=== PATIENT | male | born 1980 | race Two or more races ===

== ENCOUNTER 2018-11-03 17:01 | Emergency (ER) | payer MEDICAID ==
[~2018-11-03] VITALS: Ht 172.7 cm; Wt 111.6 kg
[2018-11-03 21:14] VITALS: BP 147/101
== END 2018-11-03 22:41 | disposition home or self-care (01) ==
LOC: ER 17:05
DX: H81.10 Benign paroxysmal vertigo, unspecified ear (principal)

== ENCOUNTER 2022-09-06 10:06 | Emergency (ER) | payer MEDICAID ==
[~2022-09-06] VITALS: Ht 172.7 cm; Wt 127.4 kg
[2022-09-06 10:28] VITALS: BP 151/100
[2022-09-06 10:41] LABS: Urine Bacteria NONE SEEN /hpf (None Seen); Urine Blood Negative /uL (Negative); Urine Budding Yeast OCCASIONAL /hpf (None Seen); Urine Mucus FEW (None Seen); Urine Specific Gravity 1.024 (1.001-1.035); Urine WBC 1 /hpf (0 - 3)
[2022-09-06 11:02] LABS: Basophils # (auto) 0 10 ^3/uL (0-0.2); Basophils % (auto) 0.3 % (0.0-2.0); Eosinophils # (auto) 0 10 ^3/uL (0-0.8); Eosinophils % (auto) 0.3 % (0.0-7.0); Hematocrit 48.9 % (41.0-53.0); Hemoglobin 16.4 g/dL (13.5-17.5); Lymphocytes # (auto) 3.1 10 ^3/uL (0.4-5.4); Lymphocytes % (auto) 23.1 % (10.0-50.0); Mean Corpuscular Hemoglobin 28.3 pg (28.0-32.0); Mean Corpuscular Hgb Conc. 33.5 g/dL (32.0-36.0); Mean Corpuscular Volume 84.5 fL (80.0-100.0); Monocytes # (auto) 0.9 10 ^3/uL (0-1.3); Monocytes % (auto) 6.8 % (0.0-12.0); Neutrophils # (auto) 9.4 10 ^3/uL (1.6-8.6); Neutrophils % (auto) 69.5 % (37.0-80.0); Nucleated Red Blood Cells % 0.2 %; Red Blood Cells 5.79 10^6/uL (4.5-5.90); Red Cell Distribution Width 13.5 % (11.8-14.3); White Blood Cell 13.5 10^3/uL (4.4-10.8)
[2022-09-06 11:24] LABS: Albumin 3.1 g/dL (3.4-5.0); Potassium 4.5 mmol/L (3.5-5.1)
[2022-09-06] MEDS ORDERED: KETOROLAC TROMETH 60MG/2ML VIAL IM ONE (11:30)
[2022-09-06] MEDS ORDERED: ONDANSETRON ODT 4 MG TAB PO ONE (11:30)
[2022-09-06 11:32] LABS: BUN/Creatinine Ratio 14.2 (10.0-20.0); Bilirubin, Total 0.4 mg/dL (0.2-1.0); Total Protein 8.2 g/dL (6.4-8.2)
[2022-09-06] MEDS ORDERED: LACT10SO70 PO (11:43)
[2022-09-06] MEDS ORDERED: IBUP800T27 PO (11:43)
[2022-09-06] MEDS ORDERED: METR500T PO (11:43)
[2022-09-06] MEDS ORDERED: CIPR-173 PO (11:43)
== END 2022-09-06 11:50 | disposition home or self-care (01) ==
LOC: ER 10:06
DX: K57.92 Diverticulitis of intestine, part unspecified, without perforation or abscess without bleeding (principal); K80.20 Calculus of gallbladder without cholecystitis without obstruction; K59.00 Constipation, unspecified; Z88.6 Allergy status to analgesic agent
CPT/HCPCS: 36415; 74176; 80053; 81001; 83690; 85025; 96372; 99285; J1885; Q0162

== ENCOUNTER 2024-07-19 11:26 | Inpatient (IN) | payer MEDICAID ==
[~2024-07-19] VITALS: Ht 175.3 cm; Wt 115.1 kg
[~2024-07-19 11:26] MED LIST: CIPR-173 PO; IBUP-1456 PO; LACT10SO70 PO; METR500T PO
--- NOTE | 2024-07-19 11:59 | ED.PDOC ---
History of Present Illness HPI Comments 43M presents to the ER w/ prior Hx of Kidney stones x10 yrs ago which might be associated to the c/c of Flank pain. Pt assumes that he has a UTio because he "feels like I am peeing sandpaper" w/ right flank pain, pain during urination, dizziness, feeling weak for the past 5 days. PMHx of HTN and DM. Denies chills, fever, N/V/D, SOB, CP or other associated symptom's, modifiers, or recent injuries or sick contact at this time. Chief Complaint: Flank Pain Time Seen by MD: 11:50 Primary Care Provider: pt does not know Reviewed Notes: Nurses Notes, Medications, Allergies Allergies: Coded Allergies: NO KNOWN ALLERGIES (Unverified , 11/03/18) Home Meds Active Scripts Lactulose (Lactulose) 10 Gm/15 Ml Pam, 30 ML PO BID, #300 ML Prov:LUCIO JOSEPH 09/06/22 Ibuprofen (Ibuprofen) 800 Mg Tab, 1 TAB PO TID, #30 TAB Prov:LUCIO JOSEPH 09/06/22 Metronidazole (Flagyl) 500 Mg Tab, 500 MG PO BID, #14 TAB Prov:LUCIO JOSEPH 09/06/22 Ciprofloxacin Hcl (Cipro) 500 Mg Tab, 1 TAB PO BID, #20 TAB Prov:LUCIO JOSEPH 09/06/22 Information Source: Patient Mode of Arrival: Ambulatory Severity: Moderate Timing: Days Duration: Since onset, Days Prehospital treatment: None Past Medical History PAST MEDICAL HISTORY: DM, HTN, Kidney Stones (10 years ago), Denies Surgical History: Denies all surgeries Family History Family History: Reviewed,noncontributory to illness, Unknown Social History Smoker: Non-Smoker Alcohol: Denies ETOH Use Drugs: Denies Drug Use Lives In: Home Constitutional: denies: chills, diaphoresis, fatigue, fever, malaise, sweats, weakness, others EENTM: denies: blurred vision, double vision, ear bleeding, ear discharge, ear drainage, ear pain, ear ringing, eye pain, eye redness, hearing loss, mouth pain, mouth swelling, nasal discharge, nose bleeding, nose congestion, nose pain, photophobia, tearing, throat pain, throat swelling, voice changes, others Respiratory: denies: cough, hemoptysis, orthopnea, SOB at rest, shortness of breath, SOB with excertion, stridor, wheezing, others Cardiovascular: denies: chest pain, dizzy spells, diaphoresis, Dyspnea on exertion, edema, irregular heart beat, left arm pain, lightheadedness, palpitations, PND, syncope, others Gastrointestinal: denies: abdomen distended, abdominal pain, blood streaked bowels, constipated, diarrhea, dysphagia, difficulty swallowing, hematemesis, melena, nausea, poor appetite, poor fluid intake, rectal bleeding, rectal pain, vomiting, others Genitourinary: reports: burning, flank pain, frequency, pain; denies: dysuria, hematuria, incontinence, penile discharge, penile sore, testicle pain, testicle swelling, urgency, others Neurological: denies: dizziness, fainting, headache, left sided numbness, left sided weakness, numbness, paresthesia, pre-existing deficit, right sided numbness, right sided weakness, seizure, speech problems, tingling, tremors, weakness, others Musculoskeletal: denies: back pain, gout, joint pain, joint swelling, muscle pain, muscle stiffness, neck pain, others Integumetry: denies: bruises, change in color, change in hair/nails, dryness, laceration, lesions, lumps, rash, wounds, others Allergic/Immunocompromised: denies: Difficulty Healing, Frequent Infections, Hives, Itching, others Hematologic/Lymphatic: denies: anemia, blood clots, easy bleeding, easy bruising, swollen glands, others Endocrine: denies: excessive hunger, excessive sweating, excessive thirst, excessive urination, flushing, intolerance to cold, intolerance to heat, unexplained weight gain, unexplained weight loss, others Psychiatric: denies: anxiety, bipolar disorder, depression, hopeless, panic disorder, schizophrenia, sleepless, suicidal, others All Other Systems: Reviewed and Negative Physical Exam General Appearance: Moderate Distress, Normal HEENT: Normal ENT Inspection, Pharynx Normal, TMs Normal Neck: Full Range of Motion, Non-Tender, Normal, Normal Inspection Respiratory: Chest Non-Tender, Lungs Clear, No Accessory Muscle Use, No Respiratory Distress, Normal Breath Sounds Cardiovascular: No Edema, No JVD, No Murmur, No Gallop, Normal Peripheral Pulses, Regular Rate/Rhythm Breast Exam: Deferred Gastrointestinal: No Organomegaly, Non Tender, No Pulsatile Mass, Normal Bowel Sounds, Soft Genitalia: Deferred Pelvic: Deferred Rectal: Deferred Extremities: No calf tenderness, Normal capillary refill, Normal inspection, Normal range of motion, Non-tender, No pedal edema Musculoskeletal : Apperance: Normal Neurologic: Alert, help desk administrator II-XII nml as Tested, No Motor Deficits, Normal Affect, Normal Mood, No Sensory Deficits Cerebellar Function: Normal Reflexes: Normal Skin: Dry, Normal Color, Warm Peripheral Pulses: 3+ Radial (R), 3+ Radial (L) Lymphatic: No Adenopathy Was a procedure done? Was a procedure done?: No Differential Dx Considerations may include: Hyperglycemia Electrolyte imbalance X-Ray, Labs, Meds, VS Vital Signs Date Time Temp Pulse Resp B/P (MAP) Pulse Ox O2 Delivery O2 Flow Rate FiO2 07/19/24 11:32 98.9 100 17 137/98 (111) 97 Lab Test 07/19/24 12:01 07/19/24 11:31 Range/Units White Blood Count Pending Red Blood Count Pending Hemoglobin Pending Hematocrit Pending Mean Corpuscular Volume Pending Mean Corpuscular Hemoglobin Pending Mean Corpuscular Hemoglobin Concent Pending Red Cell Distribution Width Pending Platelet Count Pending Mean Platelet Volume Pending Neutrophils (%) (Auto) Pending Lymphocytes (%) (Auto) Pending Monocytes (%) (Auto) Pending Basophils (%) (Auto) Pending Neutrophils # (Auto) Pending Lymphocytes # (Auto) Pending Monocytes # (Auto) Pending Sodium Level Pending Potassium Level Pending Chloride Level Pending Carbon Dioxide Level Pending Anion Gap Pending Blood Urea Nitrogen Pending Creatinine Pending Glomerular Filtration Rate Calc Pending BUN/Creatinine Ratio Pending Serum Glucose Pending Calcium Level Pending Urine Color Light-orange Yellow Urine Clarity Ex.turbid Clear Urine pH 6.0 5.0-9.0 Urine Specific [place] 1.022 1.001-1.035 Urine Protein 2+ H Negative Urine Ketones Trace Negative Urine Blood 3+ H Negative /uL Urine Nitrite 2+ H Negative Urine Bilirubin Negative Negative Urine Urobilinogen Normal Negative mg/dL Urine Leukocyte Esterase 3+ Negative /uL Urine RBC 261 0 - 3 /hpf Urine WBC Clumps Present None Seen /hpf Urine Microscopic WBC 2391 H 0-3 /HPF Urine Squamous Epithelial Cells Few <5 /hpf Urine Bacteria Few H None Seen /hpf Urine Mucus Few None Seen Urine Glucose Normal Normal mg/dL Patient alert. Complaining of flank pain Possible kidney stone. Vitals stable. Complaining of dizziness. Has good muscle strength. Ambulating. Possible sepsis from urine. Establish intravenous access. Was given fluids. Was given Rocephin. Was given pain medication. Explained to the patient. Continue cardiac monitoring. Time of 1ST Reevaluation: 12:20 Reevaluation 1ST: Unchanged Patient Education/Counseling: Diagnosis, Treatment, Prognosis Family Education/Counseling: No Family Present Departure 1 Departure Time of Disposition: 12:23 Impression: Primary Impression: Sepsis, unspecified organism Qualified Codes: A41.9 - Sepsis, unspecified organism Additional Impressions: Sepsis due to urinary tract infection Kidney stone Disposition: ADMITTED INPATIENT Admit to: Med Surg Condition: Guarded Critical Care Note Critical Care Time?: No Stability Stability form required: No Heart Score Heart Score: Heart Score Response (Comments) Value History N/A 0 EKG N/A 0 Age N/A 0 Risk Factors N/A 0 Troponin N/A 0 Total 0 I personally scribed for CHARISSE MONTES MD ([email or web address]) on 07/19/24 at 11:59. Electronically submitted by Tae Rolle ([email or web address]). CHARISSE MONTES MD Jul 19, 2024 11:59
[2024-07-19 12:07] LABS: Urine Bacteria FEW /hpf (None Seen); Urine Blood 3+ /uL (Negative); Urine Clarity Ex.Turbid (Clear); Urine Color Light-Orange (Yellow); Urine Mucus FEW (None Seen); Urine Protein, UAD 2+ (Negative); Urine Specific Gravity 1.022 (1.001-1.035); Urine Squamous Epithelial Cell FEW /hpf (<5); Urine Urobilinogen Normal (Negative); Urine WBC 2391 /HPF (0-3); Urine WBC Clumps PRESENT /hpf (None Seen)
[2024-07-19 12:26] LABS: Basophils # (auto) 0 10 ^3/uL (0-0.2); Basophils % (auto) 0.3 % (0.0-2.0); Eosinophils # (auto) 0.1 10 ^3/uL (0-0.8); Eosinophils % (auto) 0.6 % (0.0-7.0); Hemoglobin 16.2 g/dL (13.5-17.5); Lymphocytes # (auto) 2.5 10 ^3/uL (0.4-5.4); Lymphocytes % (auto) 22.5 % (10.0-50.0); Monocytes # (auto) 1.1 10 ^3/uL (0-1.3); Monocytes % (auto) 10.1 % (0.0-12.0); Neutrophils # (auto) 7.3 10 ^3/uL (1.6-8.6); Neutrophils % (auto) 66.5 % (37.0-80.0); Nucleated Red Blood Cells % 0.1 %; Platelet Count (auto) 279 10^3/uL (140-450); Red Blood Cells 5.77 10^6/uL (4.5-5.90); Red Cell Distribution Width 13.3 % (11.8-14.3)
[2024-07-19] MEDS ORDERED: SODIUM CHLORIDE 0.9% 1,000 ML IV ONE (12:30)
[2024-07-19 12:42] LABS: Chloride 100 mmol/L (98-107); Potassium 4.2 mmol/L (3.5-5.1)
[2024-07-19 12:43] LABS: Anion Gap 9 (5-15); Carbon Dioxide 27 mmol/L (20-31)
[2024-07-19 12:44] LABS: Calcium 9.9 mg/dL (8.7-10.4)
--- NOTE | 2024-07-19 12:45 | DVHHP2 ---
History of Present Illness Reason for Visit: Flank pain History of Present Illness 43-year-old male past medical history kidney stones hypertension diabetes no surgical history chief complaint patient states he has been having right flank pain. He states it feels like sandpaper when he voids. He also has some blood in his urine. He also complains of that pain is like a sharp pain on his flank. He states he has not been feeling well for the last five days. Patient denies any fever. He does state he had some mucus-like discharge from his penis. He denies any exposure to STD he states he has one partner he has been for quite some time. He did state he has some mild dizziness. No vomiting no diarrhea some body aches no chest pain no shortness with the breath. When evaluating patient's labs and imaging looks like Flomax was given normal saline Toradol Bactrim white count was 11.0 urine showed some nitrates CT scan of the abdomen and pelvis shows mild hydronephrosis inflammation and pyelonephritis and looks like a recently passed kidney stone. With these findings we will admit and provide IV antibiotics along with IV hydration Past Medical History Kidney stone hypertension diabetes Past Surgical History Denies any surgical history Family History Reviewed, non-contributory to the management of this case. Past Social History The patient lives at home, denies smoking, alcohol or illicit drugs abuse. Review of Systems Constitutional: No: Fever, Chills, Sweats, Weakness, Malaise, Other Eyes: No: Pain, Vision change, Conjunctivae inflammation, Eyelid inflammation, Other, Redness ENT: No: Ear pain, Ear discharge, Nose pain, Nose discharge, Nose congestion, Mouth pain, Mouth swelling, Throat pain, Throat swelling, Other Respiratory: No: Cough, Dry, Shortness of breath, SOB with excertion, Wheezing, Hemoptysis, Pleuritic Pain, Sputum, Wheezing, Other Cardiovascular: No: Chest Pain, Palpitations, Orthopnea, Paroxysmal Noc. Dyspnea, Edema, Lt Headedness, Other Gastrointestinal: Nausea, Vomiting, Abdominal Pain, Other (Right flank pain) Genitourinary: Dysuria; No Frequency, No Incontinence; Hematuria; No Retention, No Other Musculoskeletal: No: other, neck pain, shoulder pain, arm pain, back pain, hand pain, leg pain, foot pain Skin: No: Rash, Lesions, Jaundice, Bruising, Other Neurological: No: Weakness, Numbness, Incoordination, Change in speech, Confusion, Seizures, Other Allergies: Coded Allergies: NO KNOWN ALLERGIES (Unverified , 11/03/18) Exam Vital Signs Vital Signs Date Time Temp Pulse Resp B/P (MAP) Pulse Ox O2 Delivery O2 Flow Rate FiO2 07/19/24 11:32 98.9 100 17 137/98 (111) 97 General Appearance: Alert, Oriented X3, Cooperative, No acute distress HEENT: Atraumatic, PERRLA, EOMI, Mucous membr. moist/pink Respiratory: Clear to auscultation, Normal air movement Cardiovascular: Regular rate, Normal S1, Normal S2, No murmurs Abdominal: Normal bowel sounds, Soft, No tenderness, No hepatospenomegaly, No masses, Other (right flank pain ) Extremities: No clubbing, No cyanosis, No edema, Normal pulses, No tenderness/swelling Skin: No rashes, No breakdown, No significant lesion Neuro: Normal gait, Normal speech, Strength at 5/5 X4 ext, Normal tone, Sensation intact, Cranial nerves 3-12 NL Psych/Mental Status: Mental status NL, Mood NL Labs/Xrays CT scan abdomen and pelvis showed1. Mild hydronephrosis and hydroureter , perinephric and periureteric inflammation without urinary calculi. Pyelitis / pyelonephritis or a recently passed stone can not be ruled out. In addition, there is mild diffuse bladder wall thickening and pericystic inflammation images suggestive of cystitis. Correlate with urinalysis. 2. Colonic diverticula without diverticulitis. 3. Cholelithiasis without cholecystitis. 4. Hepatic steatosis. I reviewed labs, imaging CT scan abdomen pelvis, EKG and all diagnostic studies on this patient from ED records and the medical chart Labs Test 07/19/24 12:01 07/19/24 11:31 Range/Units White Blood Count 11.0 H 4.4-10.8 10^3/uL Red Blood Count 5.77 4.5-5.90 10^6/uL Hemoglobin 16.2 13.5-17.5 g/dL Hematocrit 49.0 41.0-53.0 % Mean Corpuscular Volume 85.0 80.0-100.0 fL Mean Corpuscular Hemoglobin 28.0 28.0-32.0 pg Mean Corpuscular Hemoglobin Concent 33.0 32.0-36.0 g/dL Red Cell Distribution Width 13.3 11.8-14.3 % Platelet Count 279 140-450 10^3/uL Mean Platelet Volume 7.4 6.9-10.8 fL Neutrophils (%) (Auto) 66.5 37.0-80.0 % Lymphocytes (%) (Auto) 22.5 10.0-50.0 % Monocytes (%) (Auto) 10.1 0.0-12.0 % Eosinophils (%) (Auto) 0.6 0.0-7.0 % Basophils (%) (Auto) 0.3 0.0-2.0 % Neutrophils # (Auto) 7.3 1.6-8.6 10 ^3/uL Lymphocytes # (Auto) 2.5 0.4-5.4 10 ^3/uL Monocytes # (Auto) 1.1 0-1.3 10 ^3/uL Eosinophils # (Auto) 0.1 0-0.8 10 ^3/uL Basophils # (Auto) 0 0-0.2 10 ^3/uL Nucleated Red Blood Cells 0.1 % Urine Color Light-orange Yellow Urine Clarity Ex.turbid Clear Urine pH 6.0 5.0-9.0 Urine Specific [place] 1.022 1.001-1.035 Urine Protein 2+ H Negative Urine Ketones Trace Negative Urine Blood 3+ H Negative /uL Urine Nitrite 2+ H Negative Urine Bilirubin Negative Negative Urine Urobilinogen Normal Negative mg/dL Urine Leukocyte Esterase 3+ Negative /uL Urine RBC 261 0 - 3 /hpf Urine WBC Clumps Present None Seen /hpf Urine Microscopic WBC 2391 H 0-3 /HPF Urine Squamous Epithelial Cells Few <5 /hpf Urine Bacteria Few H None Seen /hpf Urine Mucus Few None Seen Urine Glucose Normal Normal mg/dL Assessment/Plan Assessment/Plan acute pyelonephritis/ cystitis appears to have passed kidney stone mild hydronephrosis ct scan abd pelvis found to have infection but no abscess ua with bacteria ordered urine culture fu results ordered ceftriaxone for now ordered morphine as needed for pain ordered ivf; strict i/o's ordered flomax for now acute leukocytosis likely from pyelonephritis ordered urine culture fu results ordered ceftriaxone for now chronic problems kidney stones htn dm ISS gallstones no infection outpt follow up with general surgery hepatic steatosis outpt follow up with gi diverticulosis outpt follow up with gi high fiber diet fen/ppx diet ivf no gi ppx since no hx of gerds or gi bleed scd plan admit to medicine Plan discussed with: Patient Date of Service: Jul 19, 2024 Billing Provider: ALESSIA SHAFFER DNP Common Visit Codes: [id number] INP/OBS CARE (HIGH) ALESSIA SHAFFER DNP Jul 19, 2024 12:45
[2024-07-19 12:48] LABS: BUN/Creatinine Ratio 10.8 (10.0-20.0); Blood Urea Nitrogen 12 mg/dL (9-23)
[2024-07-19 12:50] LABS: Glucose 166 mg/dL (74-106); Sodium 136 mmol/L (136-145)
--- NOTE | 2024-07-19 13:18 | DVH ---
Procedure: CT CT AB PEL WO CON-NO ORAL OR IV 07/19/2024 12:18 PM Indication: stone Comparison Study: CT CT AB PEL WO CON-NO ORAL OR IV on DOS: 09/06/22 Technique: Axial images were obtained and reformatted in coronal and sagittal planes. All CT scans at this medical facility are performed using dose modulation techniques as appropriate t o a performed exam including the following: Automated exposure control was utilized; adjustment of th e MA and/or KV according to patient size; and use of iterative reconstruction technique. CT Dose: CTDI volume is 24.6 mGy. Dose-length product is 1657.67 mGy*cm FINDINGS: Lower Chest: Unremarkable. Hepatobiliary: Cholelithiasis without CT evidence of cholecystitis. Hepatic steatosis.. Spleen: Unremarkable. Pancreas: Unremarkable. Adrenal Glands: Unremarkable. tract: The kidneys are normal in size bilaterally . Mild right hydronephrosis and hydroureter wit h perinephric and periureteric fat stranding. No urinary calculi are seen. Mild diffuse bladder wal l thickening. GI tract: The stomach is grossly normal in appearance. No evidence of small bowel obstruction. There is descending and sigmoid diverticulosis without diverticulitis. The appendix is normal. Lymphatics: No mesenteric, retroperitoneal or periportal lymphadenopathy. Vasculature: The abdominal aorta is normal in in caliber. Pelvic Organs: Unremarkable Bones/soft tissues: No acute abnormality. Other: None. IMPRESSION: 1. Mild hydronephrosis and hydroureter , perinephric and periureteric inflammation without urinary ca lculi. Pyelitis / pyelonephritis or a recently passed stone can not be ruled out. In addition, there is mild diffuse bladder wall thickening and pericystic inflammation images suggestive of cystitis. Co rrelate with urinalysis. 2. Colonic diverticula without diverticulitis. 3. Cholelithiasis without cholecystitis. 4. Hepatic steatosis.
[2024-07-19] MEDS: SODIUM CHLORIDE 0.9% 1,000 ML IV ONE (13:28)
[2024-07-19] MEDS: KETOROLAC TROMETH 30 MG/ML 1ML VIAL IV ONE (13:29)
[2024-07-19] MEDS: TAMSULOSIN HYDROCHLORIDE 0.4 MG CAP PO ONE (13:29)
[2024-07-19] MEDS ORDERED: NITROGLYCERIN 0.4 MG SL TAB SL PRN (14:00)
[2024-07-19] MEDS ORDERED: ONDANSETRON HCL 4 MG/2 ML VIAL IV PRN (14:00)
[2024-07-19] MEDS: SODIUM CHLORIDE 0.9% 1,000 ML IV SCH (14:00)
[2024-07-19] MEDS: SULFAMETH-TRIMETH 80/16MG-ML 15 ML in D5W 5% 500 ML IV ONE (15:52)
[2024-07-19] MEDS: cefTRIAXone 1GM/50ML D5W 50 ML IV ONE (15:52)
[2024-07-19] MEDS ORDERED: LISI10TA34 PO (16:01)
[2024-07-19] MEDS ORDERED: METF-370 PO (16:01)
[2024-07-19] MEDS ORDERED: SEMA2INJ3 SC (16:01)
[2024-07-19 16:13] VITALS: PULSE 98; RESP 18; O2SAT 97
[2024-07-19 17:00] VITALS: BP 129/81; PULSE 91; RESP 18; TEMP 98.8; O2SAT 95
[2024-07-19] MEDS: MORPHINE SULFATE INJ 2 MG/ml SYRG IV PRN (18:16)
[2024-07-19] MEDS: TAMSULOSIN HYDROCHLORIDE 0.4 MG CAP PO SCH (18:18)
[2024-07-19 20:00] VITALS: PULSE 110; RESP 19; O2SAT 96
[2024-07-19 21:00] VITALS: BP 131/87; PULSE 112; RESP 19; TEMP 100; O2SAT 93
[2024-07-19 22:00] VITALS: TEMP 99.3
[2024-07-20] VITALS (7 sets, daily range): BP systolic 96–137; BP diastolic 57–85; PULSE 65–124; RESP 17–19; TEMP 98.1–100.7; O2SAT 92–97
[2024-07-20] MEDS: SODIUM CHLORIDE 0.9% 1,000 ML IV ONE (00:42)
[2024-07-20] MEDS: ACETAMINOPHEN 325 MG TAB PO PRN (00:43)
[2024-07-20] MEDS: DOCUSATE SOD 100 MG CAP PO PRN (05:48)
[2024-07-20 06:34] LABS: Basophils # (auto) 0 10 ^3/uL (0-0.2); Basophils % (auto) 0.5 % (0.0-2.0); Eosinophils # (auto) 0.1 10 ^3/uL (0-0.8); Eosinophils % (auto) 1.4 % (0.0-7.0); Hematocrit 41.5 % (41.0-53.0); Hemoglobin 13.8 g/dL (13.5-17.5); Lymphocytes # (auto) 2.9 10 ^3/uL (0.4-5.4); Lymphocytes % (auto) 31.7 % (10.0-50.0); Mean Corpuscular Hemoglobin 28.1 pg (28.0-32.0); Mean Corpuscular Hgb Conc. 33.2 g/dL (32.0-36.0); Mean Corpuscular Volume 84.6 fL (80.0-100.0); Monocytes # (auto) 1.1 10 ^3/uL (0-1.3); Monocytes % (auto) 12.4 % (0.0-12.0); Neutrophils # (auto) 4.9 10 ^3/uL (1.6-8.6); Platelet Count (auto) 242 10^3/uL (140-450); Red Blood Cells 4.91 10^6/uL (4.5-5.90); Red Cell Distribution Width 13.1 % (11.8-14.3); White Blood Cell 9.1 10^3/uL (4.4-10.8)
[2024-07-20 06:43] LABS: Alanine Aminotransferase 17 U/L (7-40); Alkaline Phosphatase 86 U/L (46-116); Anion Gap 10 (5-15); Calcium 9.1 mg/dL (8.7-10.4); Carbon Dioxide 21 mmol/L (20-31); Glucose 101 mg/dL (74-106); Potassium 3.9 mmol/L (3.5-5.1); Sodium 138 mmol/L (136-145)
[2024-07-20 06:44] LABS: BUN/Creatinine Ratio 12.2 (10.0-20.0); Blood Urea Nitrogen 11 mg/dL (9-23)
[2024-07-20 06:45] LABS: Albumin 3.8 g/dL (3.2-4.8)
[2024-07-20 06:46] LABS: Aspartate Aminotransferase 11 U/L (13-40); Bilirubin, Total 0.3 mg/dL (0.2-1.0); Chloride 107 mmol/L (98-107); Total Protein 6.1 g/dL (5.7-8.2)
[2024-07-20] MEDS: cefTRIAXone 1GM/50ML D5W 50 ML IV SCH (09:13)
--- NOTE | 2024-07-20 12:10 | DVHPN2 ---
Subjective Was admitted for right flank pain and hematuria for 4 days Changes from previous H/P or p: Changes Eyes: No Pain, No Vision change, No Conjunctivae inflammation, No Eyelid inflammation, No Other, No Redness ENT: No Ear pain, No Ear discharge, No Nose pain, No Nose discharge, No Nose congestion, No Mouth pain, No Mouth swelling, No Throat pain, No Throat swelling, No Other Cardiovascular: No Chest Pain, No Palpitations, No Orthopnea, No Paroxysmal Noc. Dyspnea, No Edema, No Lt Headedness, No Other Respiratory: No Cough, No Dry, No Shortness of breath, No SOB with excertion, No Wheezing, No Hemoptysis, No Pleuritic Pain, No Sputum, No Other Gastrointestinal: Nausea, Vomiting, Abdominal Pain, Other (Right flank pain) Genitourinary: Dysuria; No Frequency, No Incontinence; Hematuria; No Retention, No Other Musculoskeletal: No other, No neck pain, No shoulder pain, No arm pain, No back pain, No hand pain, No leg pain, No foot pain Skin: No Rash, No Lesions, No Jaundice, No Bruising, No Other Objective Vitals Vital Signs Date Time Temp Pulse Resp B/P (MAP) Pulse Ox O2 Delivery O2 Flow Rate FiO2 07/20/24 09:00 98.3 65 18 96/57 (70) 95 98.3 07/20/24 08:00 Room Air* 0 21 Intake/Output Intake and Output 07/20/24 07:00 Intake Total 3250 ml Output Total 850 ml Balance 2400 ml Intake Oral 1250 ml IV Total 2000 ml Output Urine Total 850 ml General Appearance: Alert, Oriented X3, Cooperative Lungs: Clear to auscultation, Normal air movement Cardiovascular: Regular rate, Normal S1, Normal S2 Abdomen: Normal bowel sounds, Soft, No tenderness Extremities: No edema Medications Current Medications Medications Dose Ordered Sig/Miguel Route Start Time Stop Time Status Last Admin Dose Admin Sodium Chloride 1,000 ml @ 120 mls/hr Q8H20M IV 07/19/24 14:00 07/20/24 11:14 120 MLS/HR Ondansetron HCl 4 mg Q4HP PRN IV 07/19/24 14:00 Docusate Sodium 100 mg BIDPRN PRN PO 07/19/24 14:00 07/20/24 05:48 100 MG Morphine Sulfate 2 mg Q4HPRN PRN IV 07/19/24 14:00 07/19/24 22:59 2 MG Nitroglycerin 0.4 mg Q5MINP PRN SL 07/19/24 14:00 Ceftriaxone Sodium 50 ml @ 100 mls/hr DAILY@09 IV 07/20/24 09:00 07/20/24 09:13 100 MLS/HR Tamsulosin HCl 0.4 mg QPM PO 07/19/24 18:00 07/19/24 18:18 0.4 MG Acetaminophen 650 mg Q6HP PRN PO 07/20/24 00:30 07/20/24 00:43 650 MG Laboratory Results Laboratory Tests 07/20/24 05:30 Chemistry Test 07/20/24 05:30 Albumin 3.8 g/dL (3.2-4.8) Calcium Level 9.1 mg/dL (8.7-10.4) Total Protein 6.1 g/dL (5.7-8.2) LFT Test 07/20/24 05:30 Alanine Aminotransferase (ALT) 17 U/L (7-40) Alkaline Phosphatase 86 U/L (46-116) Aspartate Amino Transferase (AST) 11 U/L (13-40) L Total Bilirubin 0.3 mg/dL (0.2-1.0) Urinalysis Test 07/19/24 11:31 Urine Color Light-orange (Yellow) Urine Clarity Ex.turbid (Clear) Urine pH 6.0 (5.0-9.0) Urine Specific [place] 1.022 (1.001-1.035) Urine Protein 2+ (Negative) H Urine Ketones Trace (Negative) Urine Blood 3+ /uL (Negative) H Urine Nitrite 2+ (Negative) H Urine Bilirubin Negative (Negative) Urine Urobilinogen Normal mg/dL (Negative) Urine Leukocyte Esterase 3+ /uL (Negative) Urine RBC 261 /hpf (0 - 3) Urine WBC Clumps Present /hpf (None Seen) Urine Microscopic WBC 2391 /HPF (0-3) H Urine Squamous Epithelial Cells Few /hpf (<5) Urine Bacteria Few /hpf (None Seen) H Urine Mucus Few (None Seen) Urine Glucose Normal mg/dL (Normal) Microbiology Microbiology Date/Time Source Procedure Growth Status 07/19/24 11:31 Voided Urine Urine Culture - Preliminary Resulted Assessment/Plan Assessment/Plan Acute pyelonephritis of the right kidney UTI with Gram-negative rods Sepsis due to pyelonephritis Possible past right renal stone Cholelithiasis, asymptomatic Hypertension Type 2 diabetes Plan IV Rocephin Urine culture Blood culture IV fluids Pain management as needed Monitor closely Accu-Cheks Full code Advance directives discussed for 15 minute Plan discussed with: Patient, Spouse Date of Service: Jul 20, 2024 Billing Provider: HARRIET MILLARD MD Common Visit Codes: [id number] INP/OBS CARE(HIGH) Secondary Visit Codes: [id number] CARE PLAN 30 MINUTES HARRIET MILLARD MD Jul 20, 2024 12:10
[2024-07-20] MEDS ORDERED: DEXTROSE (50%) 50ML SYRG IV PRN (12:15)
[2024-07-20] MEDS: ACCU-CHEK COMFORT CURVE STRIP VI SCH (16:58)
[2024-07-20] MEDS: InsuLIN REG 1unit/0.01ml Soln (100units/ml) SC SCH (17:06)
--- NOTE | 2024-07-20 22:55 | DVHINCON2 ---
Date of service: Jul 20, 2024 Referring Physician Scott Bar MD Reason for Consultation Sepsis History of Present Illness A 43-year-old man with past medical history of kidney stones, hypertension and diabetes who presented to ED on 07/19/24 with c/o right flank pain. Patient also c/o pain on urination and blood in his urine along with sharp flank pain. Pt reported not feeling well for the past five days. Denied any fever. Pt did note some mucus-like discharge from his penis. He denied any exposure to STD; he has one partner and has been for quite some time. He also c/o some mild dizziness and body aches. No chest pain, SOB, vomiting or diarrhea. On initial workup, white count was 11.0; urine showed some nitrites. CT scan of the abdomen and pelvis showing mild hydronephrosis, inflammation and pyelonephritis and what looks like a recently passed kidney stone. Patient was thus admitted for further care, and pulmonary consultation is requested for evaluation and management due to sepsis. Review of Systems: 14-point review of systems negative unless otherwise noted above. Past Medical History: Kidney stones, hypertension and diabetes Past Surgical History: None Medications: Reviewed. Allergies: No known drug allergies. Family History: DM and hypertension. No family history of premature CAD. No family history of lung disorders. Social History: Nonsmoker. No alcohol or illicit drug use. Family History: Diabetes mellitus G8 MOTHER, Onset:40's - 50 G8 FATHER, Onset:40's - 50 Hypertension G8 FATHER, Onset:30's - 40 Allergies: Coded Allergies: NO KNOWN ALLERGIES (Unverified , 11/03/18) Home Meds Active Scripts Ciprofloxacin Hcl (Cipro) 500 Mg Tab, 1 TAB PO BID, #14 TAB Prov:SCOTT BAR MD 07/21/24 Lactulose (Lactulose) 10 Gm/15 Ml Pam, 30 ML PO BID, #300 ML Prov:LUCIO JOSEPH 09/06/22 Reported Medications Semaglutide (Ozempic) 2 Mg/3 Ml Inj, 2 MG SC, INJ 07/19/24 Lisinopril (Lisinopril) 10 Mg Tab, 10 MG PO DAILY for 30 Days, MG 07/19/24 Metformin Hydrochloride (Metformin Hcl) 500 Mg Tab, 500 MG PO DAILY for 30 Days, MG 07/19/24 Discontinued Scripts Ibuprofen (Ibuprofen) 800 Mg Tab, 1 TAB PO TID, #30 TAB Prov:LUCIO JOSEPH KELLY 09/06/22 Metronidazole (Flagyl) 500 Mg Tab, 500 MG PO BID, #14 TAB Prov:LUCIO JOSEPH KELLY 09/06/22 Ciprofloxacin Hcl (Cipro) 500 Mg Tab, 1 TAB PO BID, #20 TAB Prov:LUCIO JOSEPH KELLY 09/06/22 Current Medications Current Medications Medications (Trade) Dose Ordered Sig/Miguel Route PRN Reason Start Time Stop Time Status Last Admin Ceftriaxone Sodium 50 ml @ 100 mls/hr DAILY@09 IV 07/20/24 09:00 07/20/24 09:13 Acetaminophen (Tylenol Tablet) 650 mg Q6HP PRN PO PAIN SCALE 1-3 OR TEMP>100.4 07/20/24 00:30 07/20/24 00:43 Diagnostic Test (Pha) (Accu-Chek Comfort Curve T) 1 strip ACHS 07/20/24 17:00 07/20/24 21:37 Insulin Human Regular (InsuLIN R) ACHS SC 07/20/24 17:00 07/20/24 21:22 Dextrose 50 ml UD PRN IV Blood Sugar LESS THAN 60 07/20/24 12:15 Vital Signs Vital Signs Date Time Temp Pulse Resp B/P (MAP) Pulse Ox O2 Delivery O2 Flow Rate FiO2 07/20/24 21:00 98.7 93 17 137/85 (102) 96 98.7 07/20/24 20:00 Room Air* 0 21 Physical Exam Gen.: Patient lying in bed in no apparent distress. Breathing on room air. Head: Normocephalic, atraumatic. Eyes: EOMI/PERRLA. Ears: Normal hearing. Normal anatomy. Neck/trachea: Trachea midline, supple. Nose: Normal external anatomy. Mouth: Moist mucous membranes. Chest: Decreased air entry bilaterally. No wheezing or rhonchi. Cardiovascular: Positive S1, positive S2. Regular rate and rhythm. Abdomen: Positive bowel sounds in all 4 quadrants. Soft, non-tender, non- distended. : Deferred. Rectal: Deferred. Skin: Warm, dry. Intact. Extremities: 2+ radial pulses bilaterally. No lower extremity edema. Neuro: Awake, alert, oriented x3. No gross motor or sensory deficits. Cranial nerves II through XII intact. Gait not assessed. Labs/Diagnostic Data Labs Test 07/20/24 21:14 07/20/24 05:30 07/19/24 11:31 Range/Units POC Glucose 135 H 70-106 mg/dl White Blood Count 9.1 4.4-10.8 10^3/uL Red Blood Count 4.91 4.5-5.90 10^6/uL Hemoglobin 13.8 13.5-17.5 g/dL Hematocrit 41.5 # 41.0-53.0 % Mean Corpuscular Volume 84.6 80.0-100.0 fL Mean Corpuscular Hemoglobin 28.1 28.0-32.0 pg Mean Corpuscular Hemoglobin Concent 33.2 32.0-36.0 g/dL Red Cell Distribution Width 13.1 11.8-14.3 % Platelet Count 242 140-450 10^3/uL Mean Platelet Volume 7.2 6.9-10.8 fL Neutrophils (%) (Auto) 54.0 37.0-80.0 % Lymphocytes (%) (Auto) 31.7 10.0-50.0 % Monocytes (%) (Auto) 12.4 H 0.0-12.0 % Eosinophils (%) (Auto) 1.4 0.0-7.0 % Basophils (%) (Auto) 0.5 0.0-2.0 % Neutrophils # (Auto) 4.9 1.6-8.6 10 ^3/uL Lymphocytes # (Auto) 2.9 0.4-5.4 10 ^3/uL Monocytes # (Auto) 1.1 0-1.3 10 ^3/uL Eosinophils # (Auto) 0.1 0-0.8 10 ^3/uL Basophils # (Auto) 0 0-0.2 10 ^3/uL Nucleated Red Blood Cells 0.0 % Sodium Level 138 136-145 mmol/L Potassium Level 3.9 3.5-5.1 mmol/L Chloride Level 107 98-107 mmol/L Carbon Dioxide Level 21 20-31 mmol/L Anion Gap 10 5-15 Blood Urea Nitrogen 11 9-23 mg/dL Creatinine 0.90 0.700-1.30 mg/dL Glomerular Filtration Rate Calc 108 >90 mL/min BUN/Creatinine Ratio 12.2 10.0-20.0 Serum Glucose 101 74-106 mg/dL Calcium Level 9.1 8.7-10.4 mg/dL Total Bilirubin 0.3 0.2-1.0 mg/dL Aspartate Amino Transferase (AST) 11 L 13-40 U/L Alanine Aminotransferase (ALT) 17 7-40 U/L Alkaline Phosphatase 86 46-116 U/L Total Protein 6.1 5.7-8.2 g/dL Albumin 3.8 3.2-4.8 g/dL Urine Color Light-orange Yellow Urine Clarity Ex.turbid Clear Urine pH 6.0 5.0-9.0 Urine Specific [place] 1.022 1.001-1.035 Urine Protein 2+ H Negative Urine Ketones Trace Negative Urine Blood 3+ H Negative /uL Urine Nitrite 2+ H Negative Urine Bilirubin Negative Negative Urine Urobilinogen Normal Negative mg/dL Urine Leukocyte Esterase 3+ Negative /uL Urine RBC 261 0 - 3 /hpf Urine WBC Clumps Present None Seen /hpf Urine Microscopic WBC 2391 H 0-3 /HPF Urine Squamous Epithelial Cells Few <5 /hpf Urine Bacteria Few H None Seen /hpf Urine Mucus Few None Seen Urine Glucose Normal Normal mg/dL Microbiology Date/Time Source Procedure Growth Status 07/19/24 11:31 Voided Urine Urine Culture - Preliminary Resulted Assessment Impression: Acute pyelonephritis/cystitis Sepsis d/t pyelonephritis Leukocytosis, resolved Urinary tract infection Kidney stones Hypertension DM type II Plan: Supplemental oxygen PRN Titrate to keep O2 sats above 92%. CT abd-pelvis demonstrated mild hydronephrosis and hydroureter, perinephric and periureteric inflammation without urinary calculi. Pyelitis/pyelonephritis or a recently passed stone cannot be ruled out. Mild diffuse bladder wall thickening and pericystic inflammation, images suggestive of cystitis. Colonic diverticula without diverticulitis. Cholelithiasis without cholecystitis. Hepatic steatosis. Continue antibiotics Follow up urine culture Incentive spirometry Pain control Avoid oversedation WBC within normal limits Accu-Cheks, ISS IV fluid hydration with NS at 120 ml/hr. Monitor renal function. Monitor electrolytes. Supplement as necessary. Monitor ins and outs. DVT prophylaxis. Prognosis: Guarded given patient's multiple co-morbidities. Rest of plan per hospitalist and other consultants. Thank you, Dr. Bar, for allowing me to participate in this patient's care. Further recommendations will depend on the patient's clinical course. Please do not hesitate to contact me if you have any questions or concerns. This medical document was created using an electronic medical record system with [employer] dictation system. Although these documentations are being carefully reviewed, there may still be some phonetic and typographical changes. The errors are purely typographical, due to imperfection on the software program, and do not reflect any compromise in the patient's medical care. Plan discussed with: Patient, Other (ROBERT Betancourt/MD Bar) GUANAKO MCCLELLAN MD Jul 20, 2024 22:55
[2024-07-21 00:59] VITALS: BP 124/87; PULSE 109; RESP 20; TEMP 98.1; O2SAT 96
[2024-07-21 05:07] VITALS: BP 126/87; PULSE 75; RESP 15; TEMP 97.8; O2SAT 97
[2024-07-21 09:00] VITALS: BP 132/86; PULSE 77; RESP 18; TEMP 98.2; O2SAT 97
[2024-07-21] MEDS ORDERED: CIPR-173 PO (10:35)
--- NOTE | 2024-07-21 10:40 | DVHDS2 ---
Discharge Summary Date of Admission Jul 19, 2024 at 14:00 Date of Discharge: Jul 21, 2024 Labs/Diagnostic Data: Laboratory Results Test 07/21/24 06:03 07/20/24 05:30 07/19/24 11:31 POC Glucose 124 mg/dl (70-106) White Blood Count 9.1 10^3/uL (4.4-10.8) Red Blood Count 4.91 10^6/uL (4.5-5.90) Hemoglobin 13.8 g/dL (13.5-17.5) Hematocrit 41.5 % (41.0-53.0) Mean Corpuscular Volume 84.6 fL (80.0-100.0) Mean Corpuscular Hemoglobin 28.1 pg (28.0-32.0) Mean Corpuscular Hemoglobin Concent 33.2 g/dL (32.0-36.0) Red Cell Distribution Width 13.1 % (11.8-14.3) Platelet Count 242 10^3/uL (140-450) Mean Platelet Volume 7.2 fL (6.9-10.8) Neutrophils (%) (Auto) 54.0 % (37.0-80.0) Lymphocytes (%) (Auto) 31.7 % (10.0-50.0) Monocytes (%) (Auto) 12.4 % (0.0-12.0) Eosinophils (%) (Auto) 1.4 % (0.0-7.0) Basophils (%) (Auto) 0.5 % (0.0-2.0) Neutrophils # (Auto) 4.9 10 ^3/uL (1.6-8.6) Lymphocytes # (Auto) 2.9 10 ^3/uL (0.4-5.4) Monocytes # (Auto) 1.1 10 ^3/uL (0-1.3) Eosinophils # (Auto) 0.1 10 ^3/uL (0-0.8) Basophils # (Auto) 0 10 ^3/uL (0-0.2) Nucleated Red Blood Cells 0.0 % Sodium Level 138 mmol/L (136-145) Potassium Level 3.9 mmol/L (3.5-5.1) Chloride Level 107 mmol/L (98-107) Carbon Dioxide Level 21 mmol/L (20-31) Anion Gap 10 (5-15) Blood Urea Nitrogen 11 mg/dL (9-23) Creatinine 0.90 mg/dL (0.700-1.30) Glomerular Filtration Rate Calc 108 mL/min (>90) BUN/Creatinine Ratio 12.2 (10.0-20.0) Serum Glucose 101 mg/dL (74-106) Calcium Level 9.1 mg/dL (8.7-10.4) Total Bilirubin 0.3 mg/dL (0.2-1.0) Aspartate Amino Transferase (AST) 11 U/L (13-40) Alanine Aminotransferase (ALT) 17 U/L (7-40) Alkaline Phosphatase 86 U/L (46-116) Total Protein 6.1 g/dL (5.7-8.2) Albumin 3.8 g/dL (3.2-4.8) Urine Color Light-orange (Yellow) Urine Clarity Ex.turbid (Clear) Urine pH 6.0 (5.0-9.0) Urine Specific [place] 1.022 (1.001-1.035) Urine Protein 2+ (Negative) Urine Ketones Trace (Negative) Urine Blood 3+ /uL (Negative) Urine Nitrite 2+ (Negative) Urine Bilirubin Negative (Negative) Urine Urobilinogen Normal mg/dL (Negative) Urine Leukocyte Esterase 3+ /uL (Negative) Urine RBC 261 /hpf (0 - 3) Urine WBC Clumps Present /hpf (None Seen) Urine Microscopic WBC 2391 /HPF (0-3) Urine Squamous Epithelial Cells Few /hpf (<5) Urine Bacteria Few /hpf (None Seen) Urine Mucus Few (None Seen) Urine Glucose Normal mg/dL (Normal) Other Laboratory Tests 07/20/24 05:30 Brief Hx & Hospital Course: Final diagnoses: Acute pyelonephritis of the right kidney UTI with Gram-negative rods Sepsis due to pyelonephritis Possible past right renal stone Cholelithiasis, asymptomatic Hypertension Type 2 diabetes He was need for right flank pain with hematuria and pyelonephritis and UTI The CT scan of the abdomen and pelvis did not show stone however it showed hydronephrosis and with antibiotics and hydration he improved significantly This morning he he is asymptomatic with no abdominal pain no nausea no vomiting no fever The urine culture showed E coli sensitive to most antibiotics and therefore he will be discharged home today Take Cipro 500 mg twice a day for 7 days Plenty of fluids was encouraged Resume the home medications Follow up with his primary care physician as soon as possible Condition at Discharge: Stable Final Diagnosis/Problems List Acute pyelonephritis of the right kidney UTI with Gram-negative rods Sepsis due to pyelonephritis Possible past right renal stone Cholelithiasis, asymptomatic Hypertension Type 2 diabetes Discharge Disposition: Home SNF Discharge Will this Physician continue t: No Discharge Instruct/Medications Diet: Consistent carbohydrate, Cardiac 2g Na,low cholest Activity: No Restrictions, As Tolerated Follow Up/Referral: PCP as soon as possible Medications: Cipro 500 mg twice a day for 7 days Resume the home medications Discharge Statement: "Patient was advised to return to the ER or call 911 if any headaches, dizziness, shortness of breath, chest pain, abdominal pain, bleeding, fevers, or worsening of medical condition. Patient was counseled about treatment plan, medications, possible side effects, patientverbalized understanding. All questions were answered to the best of my ability. This discharge took greater then 30 minutes in planning, reviewing documentation, counseling the patient, and discussing with other team members." ASSESSMENT ASSESSMENT Assessment Acute pyelonephritis of the right kidney UTI with Gram-negative rods Sepsis due to pyelonephritis Possible past right renal stone Cholelithiasis, asymptomatic Hypertension Type 2 diabetes Date of Service: Jul 21, 2024 Billing Provider: HARRIET MILLARD MD Common Visit Codes: 89093-QWT/OBS DISCH DAY >30min HARRIET MILLARD MD Jul 21, 2024 10:40
[2024-07-21 13:00] VITALS: BP 126/85; PULSE 84; RESP 18; TEMP 98; O2SAT 97
[2024-07-21 13:15] VITALS: TEMP 36.8
--- NOTE | 2024-07-21 17:27 | DVHPN2 ---
Progress Note - Dictate Date Seen: Jul 21, 2024 Medical Necessity Reason Pt with a Central, PICC or Fol: No Subjective No new complaints. vital signs Vital Sign Date Time Temp Pulse Resp B/P (MAP) Pulse Ox O2 Delivery O2 Flow Rate FiO2 07/21/24 13:15 36.8 07/21/24 13:00 84 18 126/85 (99) 97 07/21/24 08:10 Room Air* 0 21 Total Intake and Output 07/20/24 07/20/24 07/21/24 15:00 23:00 07:00 Intake Total 1770 ml 1500 ml 1540 ml Output Total 1900 ml Balance 1770 ml -400 ml 1540 ml objective Gen.: Patient lying in bed in no apparent distress. He is breathing comfortably on room air. Head: Normocephalic, atraumatic Eyes: EOMI/PERRLA. Ears: Normal hearing. Normal anatomy. Neck/trachea: Trachea midline, supple. Nose: Normal external anatomy. Mouth: Moist mucous membranes. Chest: Fair air entry bilaterally. No wheezing or rhonchi. Cardio vascular: Positive S1, positive S2. Regular rate and rhythm. Abdomen: Positive bowel sounds in all 4 quadrants. Soft, non-tender, non- distended. : Deferred. Rectal: Deferred Skin: Warm, dry. Extremities: 2+ radial pulses bilaterally. No lower extremity edema. Neuro: Awake, alert, oriented x3. No gross motor or sensory deficits. Cranial nerves II through XII intact. Gait not assessed. laboratory and microbiology Laboratory Tests 07/20/24 05:30 Test 07/20/24 05:30 Range/Units Serum Glucose 101 74-106 mg/dL Assessment/Plan Impression: Acute pyelonephritis/cystitis Sepsis d/t pyelonephritis Leukocytosis, resolved Urinary tract infection Kidney stones Hypertension DM type II Events: Complete abx On room air Risk factors for EKTA. Recommend outpatient evaluation for EKTA. Dispo: Per hospitalist. Plan: Supplemental oxygen PRN Titrate to keep O2 sats above 92%. CT abd-pelvis demonstrated mild hydronephrosis and hydroureter, perinephric and periureteric inflammation without urinary calculi. Pyelitis/pyelonephritis or a recently passed stone cannot be ruled out. Mild diffuse bladder wall thickening and pericystic inflammation, images suggestive of cystitis. Colonic diverticula without diverticulitis. Cholelithiasis without cholecystitis. Hepatic steatosis. Continue antibiotics Follow up urine culture Incentive spirometry Pain control Avoid oversedation WBC within normal limits Accu-Cheks, ISS IV fluid hydration with NS at 120 ml/hr. Monitor renal function. Monitor electrolytes. Supplement as necessary. Monitor ins and outs. DVT prophylaxis. Prognosis: Guarded given patient's multiple co-morbidities. Rest of plan per hospitalist and other consultants. Thank you, Dr. Bar, for allowing me to participate in this patient's care. Further recommendations will depend on the patient's clinical course. Please do not hesitate to contact me if you have any questions or concerns. This medical document was created using an electronic medical record system with [employer] computerized dictation system. Although these documentations are being carefully reviewed, there may still be some phonetic and typographical changes. The errors are purely typographical, due to imperfection on the software program, and do not reflect any compromise in the patient's medical care. Plan discussed with: Other (ROBERT [place]) GUANAKO MCCLELLAN MD Jul 21, 2024 17:27
== END 2024-07-21 13:45 | disposition home or self-care (01) | DRG 720 ==
LOC: ER 11:26 → OVERFLOW 14:00 → CENTRAL 15:24
PROVIDERS: ADMIT Internal Medicine Geriatric Medicine; ATTEND Internal Medicine Geriatric Medicine
DX: A41.51 Sepsis due to Escherichia coli [E. coli] (principal); K76.0 Fatty (change of) liver, not elsewhere classified; N13.6 Pyonephrosis; E11.9 Type 2 diabetes mellitus without complications; I10 Essential (primary) hypertension; K80.20 Calculus of gallbladder without cholecystitis without obstruction; K57.30 Diverticulosis of large intestine without perforation or abscess without bleeding; Z87.442 Personal history of urinary calculi; Z79.1 Long term (current) use of non-steroidal anti-inflammatories (NSAID); Z79.899 Other long term (current) drug therapy; Z83.3 Family history of diabetes mellitus; Z82.49 Family history of ischemic heart disease and other diseases of the circulatory system; Z79.84 Long term (current) use of oral hypoglycemic drugs
CPT/HCPCS: 36415; 74176; 80048; 80053; 81001; 82962; 85025; 87040; 87086; 87088; 87186; 96361; 96374; G0378; J1885; J3490